=== PATIENT | male | born 1945 | race Caucasian/White ===

== ENCOUNTER 2018-03-04 21:11 | Outpatient (REF) | payer OTHER, SELFPAY ==
[2018-03-04 21:58] LABS: COMMENT (LAB VIEW ONLY) 106.76 mg/dL; Microalb ug/mg Crea 31.3 ug/mg Cr
== END 2018-03-04 21:31 ==
LOC: NCHCN 21:11
PROVIDERS: PCP Internal Medicine; Visit Provider Family Medicine
DX: E11.9 Type 2 diabetes mellitus without complications (principal); R50.9 Fever, unspecified
CPT/HCPCS: 82043; 82570

== ENCOUNTER 2018-05-14 14:05 | Outpatient (REF) | payer OTHER, SELFPAY ==
[2018-05-14 22:19] LABS: Vitamin B12 416 pg/mL (193-986)
[2018-05-14 22:22] LABS: Folate > 20.0 ng/mL (8.6-20.0)
[2018-05-17 07:51] LABS: Vitamin D 25 Total 20.3 ng/ml (30-100)
== END 2018-05-14 14:25 ==
LOC: NCHCN 14:05
PROVIDERS: PCP Internal Medicine; Visit Provider Nurse Practitioner Family
DX: F32.9 Major depressive disorder, single episode, unspecified (principal); R53.83 Other fatigue
CPT/HCPCS: 82306; 82607; 82746

== ENCOUNTER 2018-11-23 10:34 | Outpatient (REF) | payer OTHER, SELFPAY ==
[2018-11-23 21:42] LABS: Mean Corp. HGB Concentration 31.4 g/dL (32.0-36.0); Mean Corpuscular Hemoglobin 30.1 pg (27.0-33.0); RBC Distribution Width 15.3 % (11.8-14.1)
[2018-11-23 21:54] LABS: ALT 26 U/L (12-78); AST 16 U/L (15-37); Albumin 4.1 g/dL (3.4-5.0); Alkaline Phosphatase 106 U/L (46-116); Anion Gap 12.4 mmol/L (3-11); BUN 32 mg/dL (7-18); Bilirubin, Total 0.3 mg/dL (0.2-1.0); CO2 23.6 mmol/L (21.0-32.0); CREATININE 1.52 mg/dL (0.70-1.30); Calculated LDL 129 mg/dL; Chloride 106 mmol/L (98-107); Cholesterol 203 mg/dL (50-200); Estimated GFR 45.43 (mL/min/1.73m2); Glucose 106 mg/dL (70-100); HDL Cholesterol 44 mg/dL (40-60); Potassium 5.1 mmol/L (3.5-5.1); Sodium 142 mmol/L (136-145); Total Protein 7.4 g/dL (6.4-8.2); Triglyceride 150 mg/dL (30-150)
[2018-11-23 22:04] LABS: Calcium 9.5 mg/dL (8.5-10.1)
[2018-11-23 23:11] LABS: HCT 42.7 % (40.0-50.0); HGB 13.4 g/dL (13.5-17.5); Platelet Count 218 x1000/uL (130-400); RBC 4.45 m/cumm (4.50-6.00); White Blood Cell Count 5.99 k/cumm (4.4-10.8)
== END 2018-11-23 10:54 ==
LOC: NCHCN 10:34
PROVIDERS: PCP Family Medicine; Visit Provider Family Medicine
DX: I10 Essential (primary) hypertension (principal); E83.51 Hypocalcemia; E11.9 Type 2 diabetes mellitus without complications; I87.2 Venous insufficiency (chronic) (peripheral); Z13.6 Encounter for screening for cardiovascular disorders
CPT/HCPCS: 80053; 80061; 83721; 85027

== ENCOUNTER 2019-02-03 09:05 | Outpatient (REF) | payer OTHER, SELFPAY ==
[2019-02-03 22:06] LABS: HCT 40.8 % (40.0-50.0); HGB 12.7 g/dL (13.5-17.5); Mean Corp. HGB Concentration 31.1 g/dL (32.0-36.0); Mean Corpuscular Hemoglobin 30.2 pg (27.0-33.0); Mean Corpuscular Volume 96.9 fL (80-95); Mean Platelet Volume 10.6 fL (8.0-11.0); Platelet Count 252 x1000/uL (130-400); RBC 4.21 m/cumm (4.50-6.00); RBC Distribution Width 15.1 % (11.8-14.1); White Blood Cell Count 6.87 k/cumm (4.4-10.8)
[2019-02-03 22:54] LABS: ALT 22 U/L (16-63); AST 28 U/L (15-37); Albumin 3.9 g/dL (3.4-5.0); Alkaline Phosphatase 112 U/L (46-116); Anion Gap 11.2 mmol/L (3-11); BUN 26 mg/dL (7-18); Bilirubin, Total 0.3 mg/dL (0.2-1.0); CO2 27.8 mmol/L (21.0-32.0); CREATININE 1.41 mg/dL (0.70-1.30); Calcium 8.8 mg/dL (8.5-10.1); Calculated LDL 39 mg/dL; Chloride 107 mmol/L (98-107); Cholesterol 110 mg/dL (50-200); Estimated GFR 49.55 (mL/min/1.73m2); Glucose 118 mg/dL (70-100); HDL Cholesterol 44 mg/dL (40-60); Potassium 4.5 mmol/L (3.5-5.1); Sodium 146 mmol/L (136-145); Total Protein 7.3 g/dL (6.4-8.2); Triglyceride 139 mg/dL (30-150); Vitamin B12 526 pg/mL (193-986)
[2019-02-04 00:06] LABS: Vitamin D 25 Total 21.2 ng/ml (30-100)
== END 2019-02-03 09:25 ==
LOC: NCHCO 09:05
PROVIDERS: PCP Family Medicine; Visit Provider Family Medicine
DX: E11.9 Type 2 diabetes mellitus without complications (principal); E78.5 Hyperlipidemia, unspecified; E55.9 Vitamin D deficiency, unspecified; D53.9 Nutritional anemia, unspecified
CPT/HCPCS: 80053; 80061; 82306; 85027; 82607

== ENCOUNTER 2019-03-22 11:12 | Outpatient (REF) | payer OTHER, SELFPAY | END 2019-03-22 11:32 | LOC: NCHCN 11:12 | PROVIDERS: PCP Family Medicine; Visit Provider Family Medicine | DX: R30.0 Dysuria (principal) | CPT/HCPCS: 87077; 87086; 87186 ==

== ENCOUNTER 2019-04-05 11:16 | Outpatient (REF) | payer OTHER, SELFPAY | END 2019-04-05 11:36 | LOC: NCHCN 11:16 | PROVIDERS: PCP Family Medicine; Visit Provider Family Medicine | DX: N39.0 Urinary tract infection, site not specified (principal); N40.1 Benign prostatic hyperplasia with lower urinary tract symptoms | CPT/HCPCS: 87077; 87086; 87186 ==

== ENCOUNTER 2019-05-02 15:23 | Outpatient (REF) | payer OTHER, SELFPAY | END 2019-05-02 15:43 | LOC: NCHCN 15:23 | PROVIDERS: PCP Family Medicine; Visit Provider Nurse Practitioner Community Health | DX: N40.1 Benign prostatic hyperplasia with lower urinary tract symptoms (principal); N39.0 Urinary tract infection, site not specified | CPT/HCPCS: 87077; 87086; 87186 ==

== ENCOUNTER 2019-05-16 12:38 | Outpatient (REF) | payer OTHER, SELFPAY ==
[2019-05-16 22:28] LABS: Abs Immature Grans 0.02 k/cumm (0.0-0.09); Absolute Basophil Count 0.03 k/cumm (0.0-0.2); Absolute Eosinophil Count 0.19 k/cumm (0.0-0.7); Absolute Lymphocyte Count 1.43 k/cumm (1.2-3.4); Absolute Monocyte Count 0.84 k/cumm (0.11-0.7); Absolute Neutrophil Count 5.79 k/cumm (1.2-6.7); Basophils % 0.4; Eosinophils % 2.3; HCT 45.6 % (40.0-50.0); HGB 13.9 g/dL (13.5-17.5); Immature Grans % 0.2 %; Lymphocytes % 17.2; Mean Corp. HGB Concentration 30.5 g/dL (32.0-36.0); Mean Corpuscular Hemoglobin 28.4 pg (27.0-33.0); Mean Corpuscular Volume 93.3 fL (80-95); Monocytes % 10.1; Neutrophils % 69.8; Platelet Count 418 x1000/uL (130-400); RBC 4.89 m/cumm (4.50-6.00); RBC Distribution Width 16.3 % (11.8-14.1)
[2019-05-16 22:39] LABS: ALT 90 U/L (16-63); AST 34 U/L (15-37); Alkaline Phosphatase 208 U/L (46-116); Anion Gap 10.7 mmol/L (3-11); BUN 35 mg/dL (7-18); Bilirubin, Total 0.4 mg/dL (0.2-1.0); CO2 26.3 mmol/L (21.0-32.0); COMMENT (LAB VIEW ONLY) 130.44 mg/dL; CREATININE 1.52 mg/dL (0.70-1.30); Calcium 9.6 mg/dL (8.5-10.1); Chloride 103 mmol/L (98-107); Estimated GFR 45.43 (mL/min/1.73m2); Glucose 113 mg/dL (74-106); Microalb ug/mg Crea 19.3 ug/mg Cr; Sodium 140 mmol/L (136-145); Total Protein 8.3 g/dL (6.4-8.2)
== END 2019-05-16 12:58 ==
LOC: NCHCN 12:38
PROVIDERS: PCP Family Medicine; Visit Provider Nurse Practitioner Community Health
DX: N40.1 Benign prostatic hyperplasia with lower urinary tract symptoms (principal)
CPT/HCPCS: 80053; 82043; 82570; 85025

== ENCOUNTER 2019-06-06 16:39 | Outpatient (REF) | payer OTHER, SELFPAY ==
[2019-06-06 21:06] LABS: Bilirubin Negative (Negative); Blood Negative (Negative); Clarity Clear (Clear); Glucose Negative (Negative); HCT 44.5 % (40.0-50.0); HGB 13.7 g/dL (13.5-17.5); Ketones Negative (Negative); Leukocyte Esterase Trace (Negative); Mean Corp. HGB Concentration 30.8 g/dL (32.0-36.0); Mean Corpuscular Hemoglobin 28.7 pg (27.0-33.0); Mean Corpuscular Volume 93.3 fL (80-95); Mean Platelet Volume 10.4 fL (8.0-11.0); Nitrite Negative (Negative); Platelet Count 274 x1000/uL (130-400); RBC 4.77 m/cumm (4.50-6.00); RBC Distribution Width 17.1 % (11.8-14.1); Urobilinogen 0.2 EU/dL (Up TO 0.2)
[2019-06-06 21:12] LABS: ALT 37 U/L (16-63); AST 27 U/L (15-37); Alkaline Phosphatase 141 U/L (46-116); Anion Gap 9.1 mmol/L (3-11); BUN 30 mg/dL (7-18); Bilirubin, Total 0.2 mg/dL (0.2-1.0); CO2 29.9 mmol/L (21.0-32.0); CREATININE 1.71 mg/dL (0.70-1.30); Calcium 9.2 mg/dL (8.5-10.1); Chloride 103 mmol/L (98-107); Estimated GFR 39.66 (mL/min/1.73m2); Glucose 120 mg/dL (74-106); Potassium 4.7 mmol/L (3.5-5.1); Sodium 142 mmol/L (136-145); Total Protein 7.9 g/dL (6.4-8.2)
[2019-06-06 21:15] LABS: C & S Indicated? C&S Done As Ordered
[2019-06-06 21:39] LABS: Bacteria Negative HPF (Negative); Casts Negative LPF (Negative); Crystals Negative HPF (Negative); Epithelial Cells Negative HPF (Negative); Mucus Negative (Negative); Other Cells Negative (Negative); RBC Negative HPF (0-2)
== END 2019-06-06 16:59 ==
LOC: NCHCN 16:39
PROVIDERS: PCP Family Medicine; Visit Provider Registered Nurse
DX: N39.0 Urinary tract infection, site not specified (principal); R53.83 Other fatigue; R79.89 Other specified abnormal findings of blood chemistry
CPT/HCPCS: 80053; 85027; 81003; 81015; 87086

== ENCOUNTER 2019-06-16 18:15 | Outpatient (REF) | payer OTHER, SELFPAY ==
[2019-06-16 21:59] LABS: ALT 327 U/L (16-63); AST 169 U/L (15-37); Abs Immature Grans 0.01 k/cumm (0.0-0.09); Absolute Basophil Count 0.02 k/cumm (0.0-0.2); Absolute Lymphocyte Count 1.35 k/cumm (1.2-3.4); Absolute Monocyte Count 0.82 k/cumm (0.11-0.7); Absolute Neutrophil Count 2.51 k/cumm (1.2-6.7); Albumin 3.7 g/dL (3.4-5.0); Alkaline Phosphatase 290 U/L (46-116); Anion Gap 10.9 mmol/L (3-11); BUN 25 mg/dL (7-18); Basophils % 0.4; Bilirubin, Total 0.5 mg/dL (0.2-1.0); CO2 27.1 mmol/L (21.0-32.0); CREATININE 1.44 mg/dL (0.70-1.30); Calcium 9.5 mg/dL (8.5-10.1); Chloride 104 mmol/L (98-107); Eosinophils % 4.1; Estimated GFR 48.22 (mL/min/1.73m2); Glucose 123 mg/dL (74-106); HCT 41.3 % (40.0-50.0); HGB 13.2 g/dL (13.5-17.5); Immature Grans % 0.2 %; Lymphocytes % 27.5; Mean Corpuscular Hemoglobin 29.3 pg (27.0-33.0); Mean Corpuscular Volume 91.8 fL (80-95); Mean Platelet Volume 10.3 fL (8.0-11.0); Monocytes % 16.7; Neutrophils % 51.1; Platelet Count 306 x1000/uL (130-400); Potassium 4.7 mmol/L (3.5-5.1); RBC Distribution Width 17.6 % (11.8-14.1); Sodium 142 mmol/L (136-145); Total Protein 7.7 g/dL (6.4-8.2); White Blood Cell Count 4.91 k/cumm (4.4-10.8)
== END 2019-06-16 18:35 ==
LOC: NCHCN 18:15
PROVIDERS: PCP Family Medicine; Visit Provider Family Medicine
DX: R74.0 Nonspecific elevation of levels of transaminase and lactic acid dehydrogenase [LDH] (principal); R79.89 Other specified abnormal findings of blood chemistry; N41.9 Inflammatory disease of prostate, unspecified
CPT/HCPCS: 80053; 83605; 85025

== ENCOUNTER 2019-06-22 12:36 | Outpatient (REF) | payer OTHER, SELFPAY ==
[2019-06-24 10:51] LABS: Hepatitis B Surface Ag Negative (Negative); Hepatitis C Ab w Rflx HCV PCR Negative (Negative)
[2019-06-24 11:07] LABS: HBs Antibody, Quant 373.3 mIU/mL (See Note); Hepatitis B Surface Ab Positive (See Note)
== END 2019-06-22 12:56 ==
LOC: NCHCN 12:36
PROVIDERS: PCP Family Medicine; Visit Provider Family Medicine
DX: R79.89 Other specified abnormal findings of blood chemistry (principal); Z11.59 Encounter for screening for other viral diseases
CPT/HCPCS: 86706; 86803; 87340

== ENCOUNTER 2019-06-27 13:56 | Outpatient (REF) | payer OTHER, SELFPAY ==
[2019-06-27 21:46] LABS: ALT 42 U/L (16-63); AST 24 U/L (15-37); Alkaline Phosphatase 155 U/L (46-116); Bilirubin, Direct 0.15 mg/dL (0.00-0.20); Bilirubin, Total 0.4 mg/dL (0.2-1.0); Total Protein 7.7 g/dL (6.4-8.2)
== END 2019-06-27 14:16 ==
LOC: NCHCN 13:56
PROVIDERS: PCP Family Medicine; Visit Provider Nurse Practitioner Community Health
DX: R41.3 Other amnesia (principal); R74.0 Nonspecific elevation of levels of transaminase and lactic acid dehydrogenase [LDH]
CPT/HCPCS: 80076; 84443

== ENCOUNTER 2019-07-04 11:26 | Outpatient (REF) | payer MEDICARE, OTHER, SELFPAY ==
[2019-07-04 21:21] LABS: Bilirubin Negative (Negative); Blood Negative (Negative); Clarity Clear (Clear); Glucose Negative (Negative); Ketones Negative (Negative); Leukocyte Esterase Negative (Negative); Nitrite Negative (Negative); Urobilinogen 0.2 EU/dL (Up TO 0.2)
[2019-07-04 21:32] LABS: ALT 29 U/L (16-63); AST 24 U/L (15-37); Albumin 4.1 g/dL (3.4-5.0); Alkaline Phosphatase 135 U/L (46-116); Anion Gap 6.3 mmol/L (3-11); Bilirubin, Total 0.3 mg/dL (0.2-1.0); CO2 31.7 mmol/L (21.0-32.0); CREATININE 1.51 mg/dL (0.70-1.30); Calcium 9.4 mg/dL (8.5-10.1); Chloride 104 mmol/L (98-107); Estimated GFR 45.65 (mL/min/1.73m2); Glucose 96 mg/dL (74-106); Sodium 142 mmol/L (136-145); Total Protein 7.8 g/dL (6.4-8.2)
[2019-07-04 21:40] LABS: BUN 31 mg/dL (7-18)
== END 2019-07-04 11:46 ==
LOC: NCHCN 11:26
PROVIDERS: PCP Family Medicine; Visit Provider Family Medicine
DX: R74.0 Nonspecific elevation of levels of transaminase and lactic acid dehydrogenase [LDH] (principal); N41.9 Inflammatory disease of prostate, unspecified; R79.89 Other specified abnormal findings of blood chemistry; N39.0 Urinary tract infection, site not specified
CPT/HCPCS: 80053; 81003

== ENCOUNTER 2019-07-11 16:00 | Outpatient (REF) | payer OTHER, SELFPAY | END 2019-07-11 16:20 | LOC: NCHCN 16:00 | PROVIDERS: PCP Family Medicine; Visit Provider Nurse Practitioner Community Health | DX: R31.9 Hematuria, unspecified (principal) | CPT/HCPCS: 87086 ==

== ENCOUNTER 2019-09-07 11:19 | Outpatient (REF) | payer MEDICARE, OTHER, SELFPAY ==
[2019-09-07 21:12] LABS: HCT 42.1 % (40.0-50.0); HGB 13.5 g/dL (13.5-17.5); Mean Corp. HGB Concentration 32.1 g/dL (32.0-36.0); Mean Corpuscular Hemoglobin 30.3 pg (27.0-33.0); Mean Corpuscular Volume 94.6 fL (80-95); Mean Platelet Volume 10.6 fL (8.0-11.0); Platelet Count 284 x1000/uL (130-400); RBC 4.45 m/cumm (4.50-6.00); RBC Distribution Width 15.8 % (11.8-14.1); White Blood Cell Count 6.92 k/cumm (4.4-10.8)
[2019-09-07 21:52] LABS: ALT 31 U/L (16-63); AST 22 U/L (15-37); Albumin 4.2 g/dL (3.4-5.0); Alkaline Phosphatase 98 U/L (46-116); Anion Gap 8.3 mmol/L (3-11); BUN 30 mg/dL (7-18); Bilirubin, Total 0.4 mg/dL (0.2-1.0); CO2 23.7 mmol/L (21.0-32.0); CREATININE 1.49 mg/dL (0.70-1.30); Calcium 9.2 mg/dL (8.5-10.1); Chloride 105 mmol/L (98-107); Estimated GFR 46.36 (mL/min/1.73m2); Glucose 101 mg/dL (74-106); Potassium 5.4 mmol/L (3.5-5.1); Sodium 137 mmol/L (136-145); Total Protein 7.9 g/dL (6.4-8.2)
== END 2019-09-07 11:39 ==
LOC: NCHCN 11:19
PROVIDERS: PCP Family Medicine; Visit Provider Registered Nurse
DX: R42 Dizziness and giddiness (principal); N39.0 Urinary tract infection, site not specified
CPT/HCPCS: 80053; 85027; 87086

== ENCOUNTER 2019-09-13 22:42 | Outpatient (REF) | payer MEDICARE, OTHER, SELFPAY ==
[2019-09-13 21:52] LABS: Anion Gap 6.3 mmol/L (3-11); BUN 29 mg/dL (7-18); C-Reactive Protein 0.22 mg/dL (0.0-0.3); CO2 28.7 mmol/L (21.0-32.0); CREATININE 1.35 mg/dL (0.70-1.30); Calcium 9.1 mg/dL (8.5-10.1); Chloride 104 mmol/L (98-107); Estimated GFR 51.95 (mL/min/1.73m2); Glucose 102 mg/dL (74-106); Potassium 5.1 mmol/L (3.5-5.1); Sodium 139 mmol/L (136-145)
[2019-09-13 23:10] LABS: ESR 29 mm/hr (1-20)
== END 2019-09-13 23:02 ==
LOC: NCHCN 22:42
PROVIDERS: PCP Family Medicine; Visit Provider Family Medicine
DX: E11.9 Type 2 diabetes mellitus without complications (principal); E87.5 Hyperkalemia; L97.509 Non-pressure chronic ulcer of other part of unspecified foot with unspecified severity
CPT/HCPCS: 80048; 85652; 86140

== ENCOUNTER 2019-09-29 16:54 | Outpatient (REF) | payer MEDICARE, OTHER, SELFPAY ==
[2019-09-29 21:14] LABS: C-Reactive Protein 0.41 mg/dL (0.0-0.3)
== END 2019-09-29 17:14 ==
LOC: NCHCN 16:54
PROVIDERS: PCP Family Medicine; Visit Provider Family Medicine
DX: L03.032 Cellulitis of left toe (principal)
CPT/HCPCS: 86140

== ENCOUNTER 2019-11-23 11:15 | Outpatient (REF) | payer MEDICARE, OTHER, SELFPAY ==
[2019-11-23 22:17] LABS: Ferritin 19 ng/mL (26-388)
[2019-11-25 08:23] LABS: HBs Antibody, Quant 386.4 mIU/mL (See Note); Hepatitis B Surface Ab Positive (See Note)
[2019-11-25 09:31] LABS: Hepatitis C Ab w Rflx HCV PCR Negative (Negative)
[2019-11-25 09:44] LABS: Hep A Total Ab w Rflx IgM Negative (Negative)
[2019-11-25 10:30] LABS: IgA 221 mg/dL (85-499); IgG 1010 mg/dL (610-1,616); IgM 102 mg/dL (35-242)
[2019-11-25 14:48] LABS: ANA Interpretation Positive (Negative); ANA Titer Pattern 1:80 Homogeneous
[2019-11-25 15:44] LABS: Smooth Muscle Ab Screen Negative (Negative)
== END 2019-11-23 11:35 ==
LOC: LBN 11:15
PROVIDERS: PCP Family Medicine; Referring Provider Family Medicine; Visit Provider Internal Medicine Gastroenterology
DX: R94.5 Abnormal results of liver function studies (principal)
CPT/HCPCS: 82784; 86706; 86709; 86803; 82728; 83915; 86038; 86255

== ENCOUNTER 2020-03-27 15:20 | Outpatient (REF) | payer MEDICARE, OTHER, SELFPAY ==
[2020-03-27 22:22] LABS: Microalb ug/mg Crea 10.5 ug/mg Cr
== END 2020-03-27 15:40 ==
LOC: NCHCN 15:20
PROVIDERS: PCP Family Medicine; Visit Provider Family Medicine
DX: E11.9 Type 2 diabetes mellitus without complications (principal)
CPT/HCPCS: 82043; 82570

== ENCOUNTER 2020-07-26 00:59 | Outpatient (REF) | payer MEDICARE, OTHER, SELFPAY ==
[2020-07-26 20:34] LABS: Hemoglobin A1C 6.2 % (<5.7)
[2020-07-26 20:39] LABS: ALT 27 U/L (16-63); AST 20 U/L (15-37); Alkaline Phosphatase 114 U/L (46-116); BUN 27 mg/dL (7-18); Bilirubin, Total 0.3 mg/dL (0.2-1.0); CREATININE 1.3 mg/dL (0.70-1.30); Calcium 8.5 mg/dL (8.5-10.1); Calculated LDL 99 mg/dL (<100); Chloride 107 mmol/L (98-107); Cholesterol 176 mg/dL (<200); Estimated GFR 54.11 (mL/min/1.73m2); Glucose 117 mg/dL (74-106); HDL Cholesterol 53 mg/dL (40-60); Potassium 4.3 mmol/L (3.5-5.1); Sodium 142 mmol/L (136-145); Total Protein 7.4 g/dL (6.4-8.2); Triglyceride 122 mg/dL (<150)
[2020-07-26 21:25] LABS: Vitamin D 25 Total 24.4 ng/ml (30-100)
== END 2020-07-26 01:00 | disposition home or self-care (01) ==
LOC: NCHCN 00:59
PROVIDERS: PCP Family Medicine; Visit Provider Family Medicine
DX: E11.9 Type 2 diabetes mellitus without complications (principal); E78.5 Hyperlipidemia, unspecified; E55.9 Vitamin D deficiency, unspecified; E66.9 Obesity, unspecified
CPT/HCPCS: 80053; 80061; 82306; 83036

== ENCOUNTER 2020-08-06 13:04 | Outpatient (REF) | payer MEDICARE, OTHER, SELFPAY ==
[2020-08-06 13:31] LABS: Abs Immature Grans 0.02 10^3/uL (0.0-0.06); Absolute Basophil Count 0.04 10^3/uL (0.0-0.2); Absolute Eosinophil Count 0.09 10^3/uL (0.0-0.7); Absolute Lymphocyte Count 1.05 10^3/uL (1.2-3.4); Absolute Monocyte Count 0.66 10^3/uL (0.1-0.8); Absolute Neutrophil Count 5.69 10^3/uL (1.2-6.7); Basophils % 0.5; Eosinophils % 1.2; HCT 38.8 % (40.0-50.0); Immature Grans % 0.3; Lymphocytes % 13.9; MCH 27.1 pg (27.0-33.0); MCHC 30.9 % (32.0-36.0); MCV 87.6 fL (80-95); MPV 10.6 fL (8.0-11.0); Monocytes % 8.7; Neutrophils % 75.4; Nucleated RBC 0 %; Platelet Count 264 10^3/uL (130-400); RBC 4.43 10^6/uL (4.36-5.78); RDW 16.2 % (11.8-14.1); RDW-SD 52.3 fL; WBC 7.55 10^3/uL (4.4-10.8)
[2020-08-06 13:53] LABS: Uric Acid 6.6 mg/dL (3.5-7.2)
[2020-08-07 08:39] LABS: Ferritin 17 ng/mL (26-388); Vitamin B12 458 pg/mL (193-986)
== END 2020-08-06 13:05 | disposition home or self-care (01) ==
LOC: NCHCN 13:04
PROVIDERS: PCP Family Medicine; Visit Provider Nurse Practitioner Family
DX: M70.32 Other bursitis of elbow, left elbow (principal); R29.6 Repeated falls; R26.89 Other abnormalities of gait and mobility; M25.522 Pain in left elbow
CPT/HCPCS: 82607; 82728; 84550; 85025

== ENCOUNTER 2020-08-15 17:26 | Outpatient (REF) | payer MEDICARE, OTHER, SELFPAY ==
[2020-08-15 22:24] LABS: Folate 18.1 ng/mL (8.6-20.0)
== END 2020-08-15 17:27 | disposition home or self-care (01) ==
LOC: NCHCN 17:26
PROVIDERS: PCP Family Medicine; Visit Provider Nurse Practitioner Family
DX: D53.9 Nutritional anemia, unspecified (principal)
CPT/HCPCS: 82746

== ENCOUNTER 2021-01-17 17:31 | Outpatient (REF) | payer MEDICARE, OTHER, SELFPAY ==
[2021-01-17 20:44] LABS: COMMENT (LAB VIEW ONLY) 120.55 mg/dL; Microalb ug/mg Crea 10.4 ug/mg Cr
== END 2021-01-17 17:32 | disposition home or self-care (01) ==
LOC: NCHCN 17:31
PROVIDERS: PCP Family Medicine; Visit Provider Family Medicine
DX: E11.9 Type 2 diabetes mellitus without complications (principal)
CPT/HCPCS: 82043; 82570

== ENCOUNTER 2021-01-22 12:37 | Outpatient (REF) | payer MEDICARE, OTHER, SELFPAY | END 2021-01-22 12:38 | disposition home or self-care (01) | LOC: NCHCN 12:37 | PROVIDERS: PCP Family Medicine; Referring Provider Nurse Practitioner Family; Visit Provider Nurse Practitioner Family | DX: R30.0 Dysuria (principal) | CPT/HCPCS: 87077; 87086; 87186 ==

== ENCOUNTER 2021-04-11 15:20 | Outpatient (REF) | payer MEDICARE, OTHER, SELFPAY | END 2021-04-11 15:21 | disposition home or self-care (01) | LOC: NCHCN 15:20 | PROVIDERS: PCP Family Medicine; Visit Provider Nurse Practitioner Family | DX: R30.0 Dysuria (principal) | CPT/HCPCS: 87077; 87086; 87186 ==

== ENCOUNTER 2021-04-30 16:02 | Outpatient (REF) | payer OTHER, SELFPAY ==
[2021-04-30 21:35] LABS: Abs Immature Grans 0.01 10^3/uL (0.0-0.06); Absolute Basophil Count 0.03 10^3/uL (0.0-0.2); Absolute Eosinophil Count 0.26 10^3/uL (0.0-0.7); Absolute Lymphocyte Count 1.49 10^3/uL (1.2-3.4); Absolute Monocyte Count 0.64 10^3/uL (0.1-0.8); Basophils % 0.5; Eosinophils % 4.7; HCT 39.5 % (40.0-50.0); HGB 11.8 g/dL (13.5-17.5); Immature Grans % 0.2; Lymphocytes % 26.9; MCH 26.5 pg (27.0-33.0); MCHC 29.9 % (32.0-36.0); MCV 88.8 fL (80-95); MPV 10.5 fL (8.0-11.0); Monocytes % 11.6; Neutrophils % 56.1; Nucleated RBC 0 %; Platelet Count 265 10^3/uL (130-400); RBC 4.45 10^6/uL (4.36-5.78); RDW 15.8 % (11.8-14.1); RDW-SD 51.7 fL; WBC 5.53 10^3/uL (4.4-10.8)
[2021-04-30 21:51] LABS: ALT 29 U/L (16-63); AST 22 U/L (15-37); Albumin 3.7 g/dL (3.4-5.0); Alkaline Phosphatase 134 U/L (46-116); Anion Gap 8.6 mmol/L (3-11); BUN 32 mg/dL (7-18); Bilirubin, Total 0.2 mg/dL (0.2-1.0); CO2 26.4 mmol/L (21.0-32.0); CREATININE 1.3 mg/dL (0.70-1.30); Calcium 8.7 mg/dL (8.5-10.1); Chloride 105 mmol/L (98-107); Estimated GFR 54.11 (mL/min/1.73m2); Glucose 89 mg/dL (74-106); Potassium 5.1 mmol/L (3.5-5.1); Sodium 140 mmol/L (136-145); TSH (W/Ref FT4) 1.81 uIU/mL (0.36-3.74); Total Protein 7.4 g/dL (6.4-8.2)
[2021-04-30 21:55] LABS: INR 2.5 (0.9-1.1); Prothrombin Time 24.2 sec (9.3-11.0)
[2021-04-30 22:00] LABS: Hemoglobin A1C 6.4 % (<5.7)
[2021-05-02 00:24] LABS: Vitamin D 25 Total 23.7 ng/mL (30-100)
== END 2021-04-30 16:03 | disposition home or self-care (01) ==
LOC: NCHCN 16:02
PROVIDERS: PCP Family Medicine; Visit Provider Family Medicine
DX: E11.9 Type 2 diabetes mellitus without complications (principal); R53.83 Other fatigue; I48.0 Paroxysmal atrial fibrillation; E66.8 Other obesity
CPT/HCPCS: 80053; 82306; 83036; 84443; 85025; 85610; 86140

== ENCOUNTER 2022-01-31 19:56 | Outpatient (REF) | payer OTHER, SELFPAY ==
[2022-01-31 18:24] LABS: COMMENT (LAB VIEW ONLY) 164.71 mg/dL; Microalb ug/mg Crea 10.8 ug/mg Cr
== END 2022-01-31 19:57 | disposition home or self-care (01) ==
LOC: NCHCN 19:56
PROVIDERS: PCP Family Medicine; Visit Provider Family Medicine
DX: E11.9 Type 2 diabetes mellitus without complications (principal)
CPT/HCPCS: 82043; 82570

== ENCOUNTER 2022-03-19 17:20 | Outpatient (REF) | payer OTHER, SELFPAY ==
[2022-03-19 20:28] LABS: HCT 39.4 % (40.0-50.0); HGB 11.9 g/dL (13.5-17.5); MCHC 30.2 % (32.0-36.0); MCV 93 fL (80-95); MPV 11.9 fL (8.0-11.0); Platelet Count 165 10^3/uL (130-400); RBC 4.25 10^6/uL (4.36-5.78); RDW 15.1 % (11.8-14.1); RDW-SD 51.2 fL; WBC 6.89 10^3/uL (4.4-10.8)
[2022-03-19 20:34] LABS: Anion Gap 8.5 mmol/L (3-11); BUN 43 mg/dL (7-18); CO2 25.5 mmol/L (21.0-32.0); CREATININE 1.8 mg/dL (0.70-1.30); Calcium 9.3 mg/dL (8.5-10.1); Chloride 108 mmol/L (98-107); Estimated GFR 39.01 (mL/min/1.73m2); Glucose 125 mg/dL (74-106); Sodium 142 mmol/L (136-145)
== END 2022-03-19 17:21 | disposition home or self-care (01) ==
LOC: NCHCN 17:20
PROVIDERS: PCP Family Medicine; Visit Provider Family Medicine
DX: R53.83 Other fatigue (principal); I10 Essential (primary) hypertension
CPT/HCPCS: 80048; 85027

== ENCOUNTER 2022-04-17 11:52 | Outpatient (REF) | payer OTHER, SELFPAY ==
[2022-04-17 14:58] LABS: Vitamin D 25 Total 36.3 ng/mL (30-100)
== END 2022-04-17 11:53 | disposition home or self-care (01) ==
LOC: NCHCN 11:52
PROVIDERS: PCP Family Medicine; Visit Provider Family Medicine
DX: N18.9 Chronic kidney disease, unspecified (principal)
CPT/HCPCS: 80048; 82306

== ENCOUNTER 2022-04-23 16:14 | Outpatient (REF) | payer OTHER, SELFPAY ==
[2022-04-23 21:36] LABS: Anion Gap 5.8 mmol/L (3-11); BUN 35 mg/dL (7-18); CO2 28.2 mmol/L (21.0-32.0); CREATININE 1.5 mg/dL (0.70-1.30); Chloride 106 mmol/L (98-107); Estimated GFR 48.55 (mL/min/1.73m2); Glucose 112 mg/dL (74-106); Potassium 4.6 mmol/L (3.5-5.1); Sodium 140 mmol/L (136-145)
== END 2022-04-23 16:15 | disposition home or self-care (01) ==
LOC: NCHCN 16:14
PROVIDERS: PCP Family Medicine; Visit Provider Family Medicine
DX: E55.9 Vitamin D deficiency, unspecified (principal); N18.9 Chronic kidney disease, unspecified
CPT/HCPCS: 80048

== ENCOUNTER 2022-12-24 17:35 | Outpatient (REF) | payer OTHER, SELFPAY ==
[2022-12-24 21:17] LABS: Anion Gap 9.8 mmol/L (3-11); BUN 35 mg/dL (7-18); CO2 25.2 mmol/L (21.0-32.0); CREATININE 1.6 mg/dL (0.70-1.30); Calcium 9.4 mg/dL (8.5-10.1); Chloride 104 mmol/L (98-107); Estimated GFR 44.65 (mL/min/1.73m2); Glucose 122 mg/dL (74-106); Potassium 4.7 mmol/L (3.5-5.1); Sodium 139 mmol/L (136-145)
== END 2022-12-24 17:36 | disposition home or self-care (01) ==
LOC: NCHCN 17:35
PROVIDERS: PCP Family Medicine; Visit Provider Internal Medicine
DX: I10 Essential (primary) hypertension (principal); R60.0 Localized edema
CPT/HCPCS: 80048

== ENCOUNTER 2023-01-09 11:18 | Outpatient (REF) | payer OTHER, SELFPAY ==
[2023-01-09 16:55] LABS: Anion Gap 9.7 mmol/L (3-11); BUN 47 mg/dL (7-18); CO2 25.3 mmol/L (21.0-32.0); CREATININE 2.1 mg/dL (0.70-1.30); Calcium 9.2 mg/dL (8.5-10.1); Chloride 105 mmol/L (98-107); Estimated GFR 32.22 (mL/min/1.73m2); Glucose 128 mg/dL (74-106); Potassium 5.3 mmol/L (3.5-5.1); Sodium 140 mmol/L (136-145)
== END 2023-01-09 11:19 | disposition home or self-care (01) ==
LOC: NCHCN 11:18
PROVIDERS: PCP Family Medicine; Visit Provider Family Medicine
DX: I10 Essential (primary) hypertension (principal); R60.0 Localized edema
CPT/HCPCS: 80048

== ENCOUNTER 2023-01-14 17:53 | Outpatient (REF) | payer OTHER, SELFPAY ==
[2023-01-14 15:38] LABS: Anion Gap 8.9 mmol/L (3-11); BUN 53 mg/dL (7-18); CO2 25.1 mmol/L (21.0-32.0); CREATININE 2.2 mg/dL (0.70-1.30); Calcium 9.3 mg/dL (8.5-10.1); Chloride 105 mmol/L (98-107); Estimated GFR 30.47 (mL/min/1.73m2); Glucose 120 mg/dL (74-106); Potassium 5.1 mmol/L (3.5-5.1); Sodium 139 mmol/L (136-145)
== END 2023-01-14 17:54 | disposition home or self-care (01) ==
LOC: NCHCN 17:53
PROVIDERS: PCP Family Medicine; Visit Provider Family Medicine
DX: I10 Essential (primary) hypertension (principal)
CPT/HCPCS: 80048

== ENCOUNTER 2023-01-23 12:44 | Outpatient (REF) | payer OTHER, SELFPAY ==
[2023-01-23 21:35] LABS: Anion Gap 8.2 mmol/L (3-11); BUN 44 mg/dL (7-18); CO2 27.8 mmol/L (21.0-32.0); CREATININE 1.9 mg/dL (0.70-1.30); Calcium 9.6 mg/dL (8.5-10.1); Chloride 105 mmol/L (98-107); Estimated GFR 36.33 (mL/min/1.73m2); Glucose 114 mg/dL (74-106); Potassium 4.7 mmol/L (3.5-5.1); Sodium 141 mmol/L (136-145)
[2023-01-23 22:46] LABS: COMMENT (LAB VIEW ONLY) 102.88 mg/dL; Microalb ug/mg Crea 8.5 ug/mg Cr
== END 2023-01-23 12:45 | disposition home or self-care (01) ==
LOC: NCHCN 12:44
PROVIDERS: PCP Family Medicine; Visit Provider Family Medicine
DX: E11.9 Type 2 diabetes mellitus without complications (principal); N18.9 Chronic kidney disease, unspecified
CPT/HCPCS: 80048; 82043; 82570

== ENCOUNTER 2023-07-27 08:24 | Outpatient (REF) | payer OTHER, SELFPAY ==
[2023-07-27 15:26] LABS: ALT 22 U/L (16-63); AST 21 U/L (15-37); Albumin 4.1 g/dL (3.4-5.0); Alkaline Phosphatase 120 U/L (46-116); Anion Gap 10.1 mmol/L (3-11); BUN 54 mg/dL (7-18); Bilirubin, Total 0.4 mg/dL (0.2-1.0); CO2 25.9 mmol/L (21.0-32.0); CREATININE 2.1 mg/dL (0.70-1.30); Calcium 9.5 mg/dL (8.5-10.1); Calculated LDL 42 mg/dL (<100); Chloride 105 mmol/L (98-107); Cholesterol 124 mg/dL (<200); Estimated GFR 32.02 (mL/min/1.73m2); Glucose 97 mg/dL (74-106); HDL Cholesterol 50 mg/dL (40-60); Potassium 4.8 mmol/L (3.5-5.1); Sodium 141 mmol/L (136-145); Triglyceride 161 mg/dL (<150)
[2023-07-27 15:55] LABS: Hemoglobin A1C 6.3 % (<5.7)
== END 2023-07-27 08:25 | disposition home or self-care (01) ==
LOC: NCHCN 08:24
PROVIDERS: PCP Family Medicine; Visit Provider Family Medicine
DX: E11.9 Type 2 diabetes mellitus without complications (principal); E78.5 Hyperlipidemia, unspecified; N18.9 Chronic kidney disease, unspecified
CPT/HCPCS: 80053; 80061; 83036

== ENCOUNTER 2024-02-18 16:09 | Outpatient (REF) | payer OTHER, SELFPAY | END 2024-02-18 16:10 | disposition home or self-care (01) | LOC: NCHCN 16:09 | PROVIDERS: PCP Family Medicine; Visit Provider Family Medicine | DX: I10 Essential (primary) hypertension (principal); E11.9 Type 2 diabetes mellitus without complications | CPT/HCPCS: 80048; 82043; 82570 ==

== ENCOUNTER 2024-02-23 16:37 | Outpatient (REF) | payer OTHER, SELFPAY ==
[2024-02-23 21:51] LABS: Anion Gap 7.5 mmol/L (3-11); BUN 22 mg/dL (7-18); CO2 30.5 mmol/L (21.0-32.0); CREATININE 1.6 mg/dL (0.70-1.30); Calcium 9.3 mg/dL (8.5-10.1); Chloride 109 mmol/L (98-107); Estimated GFR 44.38 (mL/min/1.73m2); Glucose 118 mg/dL (74-106); Potassium 4.5 mmol/L (3.5-5.1); Sodium 147 mmol/L (136-145)
== END 2024-02-23 16:38 | disposition home or self-care (01) ==
LOC: NCHCN 16:37
PROVIDERS: PCP Family Medicine; Visit Provider Family Medicine
DX: I10 Essential (primary) hypertension (principal)
CPT/HCPCS: 80048

== ENCOUNTER 2024-09-13 14:07 | Outpatient (REF) | payer OTHER, SELFPAY ==
[2024-09-13 16:35] LABS: Hemoglobin A1C 6.1 % (<5.7)
[2024-09-13 17:11] LABS: ALT 17 U/L (16-63); AST 19 U/L (15-37); Albumin 3.9 g/dL (3.4-5.0); Alkaline Phosphatase 121 U/L (46-116); Anion Gap 8.6 mmol/L (3-11); BUN 30 mg/dL (7-18); Bilirubin, Total 0.4 mg/dL (0.2-1.0); CO2 28.4 mmol/L (21.0-32.0); CREATININE 1.7 mg/dL (0.70-1.30); Calcium 9.6 mg/dL (8.5-10.1); Chloride 108 mmol/L (98-107); Estimated GFR 41.01 (mL/min/1.73m2); Glucose 100 mg/dL (74-106); Potassium 5.2 mmol/L (3.5-5.1); Sodium 145 mmol/L (136-145)
[2024-09-14 05:19] LABS: Calculated LDL 44 mg/dL (<100); Cholesterol 118 mg/dL (<200); HDL Cholesterol 53 mg/dL (>or=40); Triglyceride 106 mg/dL (<150)
== END 2024-09-13 14:08 | disposition home or self-care (01) ==
LOC: NCHCN 14:07
PROVIDERS: PCP Family Medicine; Visit Provider Family Medicine
DX: E11.22 Type 2 diabetes mellitus with diabetic chronic kidney disease (principal)
CPT/HCPCS: 80053; 80061; 83036

== ENCOUNTER 2024-11-23 17:52 | Outpatient (REF) | payer OTHER, SELFPAY | END 2024-11-23 17:53 | disposition home or self-care (01) | LOC: NCHCN 17:52 | PROVIDERS: PCP Family Medicine; Visit Provider Physician Assistant | DX: R39.9 Unspecified symptoms and signs involving the genitourinary system (principal) | CPT/HCPCS: 87077; 87086; 87186 ==